=== PATIENT | female | born 1955 | race Caucasian/White ===

== ENCOUNTER 2022-04-07 21:25 | Inpatient (IN) | payer MEDICARE ==
[~2022-04-07] VITALS: Ht 160 cm; Wt 105.7 kg
[2022-04-07 21:30] VITALS: BP 99/47
[2022-04-07 21:47] LABS: HEMATOCRIT 34.5 % (37.0-47.0); MEAN CELL VOLUME 84.8 fl (81.0-99.0); MEAN CORPUSCULAR HGB CONC 30.7 g/dl (33.0-37.0); MEAN PLATELET VOLUME 11.6 fl (9.6-12.3); PLATELET COUNT AUTOMATED 148 10*3/uL (130-400); RED BLOOD COUNT 4.07 10*6/uL (4.10-5.10); RED CELL DISTRI WIDTH 16.4 % (0-14.5); WHITE BLOOD COUNT 22.2 10*3/uL (4.8-10.8)
[2022-04-07 21:50] LABS: MANUAL DIFF REFLEX YES
[2022-04-07 22:01] LABS: POTASSIUM 3.5 mmol/L (3.4-5.1)
[2022-04-07 22:07] LABS: PLATELET SUFFICIENCY NORMAL (NORMAL); TOTAL CELLS COUNTED 100 #CELLS
[2022-04-07 22:27] VITALS: BP 125/70
[2022-04-07 23:13] VITALS: BP 120/52
[2022-04-07 23:29] LABS: BILIRUBIN Negative (Negative); BLOOD Negative (Negative); CLARITY Cloudy (Clear); COLOR Yellow (Yellow); GLUCOSE Negative (Negative); KETONE Trace (Negative); LEUKO ESTERASE 2+ (Negative); NITRITE Negative (Negative); SPECIFIC GRAVITY 1.015 (1.001-1.030)
[2022-04-07 23:51] LABS: EPITHELIAL CELLS TNTC
[2022-04-07 23:52] LABS: BACTERIA 2+; WBC 16-20 wbc/hpf (0-5)
[2022-04-08] VITALS (12 sets, daily range): BP systolic 100–141; BP diastolic 47–87
[2022-04-08 06:25] LABS: HEMATOCRIT 32.9 % (37.0-47.0); MEAN CELL VOLUME 86.4 fl (81.0-99.0); MEAN CORPUSCULAR HGB 26.5 pg (27.0-31.0); MEAN CORPUSCULAR HGB CONC 30.7 g/dl (33.0-37.0); MEAN PLATELET VOLUME 12.9 fl (9.6-12.3); PLATELET COUNT AUTOMATED 129 10*3/uL (130-400); RED BLOOD COUNT 3.81 10*6/uL (4.10-5.10); RED CELL DISTRI WIDTH 16.5 % (0-14.5); WHITE BLOOD COUNT 17.9 10*3/uL (4.8-10.8)
[2022-04-08 06:31] LABS: MANUAL DIFF REFLEX YES
[2022-04-08 07:24] LABS: BASOPHILS 1 % (0-1); PLATELET SUFFICIENCY LOW (NORMAL); TOTAL CELLS COUNTED 100 #CELLS
[2022-04-08 07:33] LABS: POTASSIUM 3.4 mmol/L (3.4-5.1); TOTAL PROTEIN 5.5 gm/dL (6.0-8.0)
[2022-04-08 08:07] LABS: VITAMIN D, 25-HYDROXY 27.3 ng/mL (30-100)
[2022-04-08] MEDS ORDERED: KAPSPARGO SPRI100 MG PO (17:13)
[2022-04-08] MEDS ORDERED: ALLOPURINOL300 MG PO (17:14)
[2022-04-08] MEDS ORDERED: SOAANZ60 M1 PO (17:14)
[2022-04-08] MEDS ORDERED: VAZALORE81 MG PO (17:15)
[2022-04-08] MEDS ORDERED: TRELEGY ELLIPT1 EACH INH (17:22)
[2022-04-09] VITALS: BP 142/82
[2022-04-09 07:58] LABS: MEAN CELL VOLUME 87.2 fl (81.0-99.0); MEAN CORPUSCULAR HGB 26.4 pg (27.0-31.0); MEAN CORPUSCULAR HGB CONC 30.3 g/dl (33.0-37.0); MEAN PLATELET VOLUME 12.3 fl (9.6-12.3); PLATELET COUNT AUTOMATED 97 10*3/uL (130-400); RED BLOOD COUNT 3.67 10*6/uL (4.10-5.10); RED CELL DISTRI WIDTH 16.7 % (0-14.5); WHITE BLOOD COUNT 9.2 10*3/uL (4.8-10.8)
[2022-04-09 08:00] VITALS: BP 119/57
[2022-04-09 08:01] LABS: MANUAL DIFF REFLEX YES
[2022-04-09 08:32] LABS: POTASSIUM 3.8 mmol/L (3.4-5.1)
[2022-04-09 08:36] LABS: ATYPICAL LYMPHS 1 % (0-0); POLYCHROMASIA SLIGHT; TOTAL CELLS COUNTED 100 #CELLS
[2022-04-09 08:37] LABS: OVALOCYTES FEW; PLATELET SUFFICIENCY LOW (NORMAL); ROULEAUX SLIGHT; TARGET CELLS FEW
[2022-04-09 12:00] VITALS: BP 123/68
[2022-04-09 14:09] LABS: ACID FAST SPEC PROCESSING Direct Inoculation (.)
[2022-04-09 16:00] VITALS: BP 132/68
[2022-04-09 20:00] VITALS: BP 131/81
[2022-04-10] VITALS (8 sets, daily range): BP systolic 135–155; BP diastolic 72–95
[2022-04-10 02:12] LABS: HEMATOCRIT 30.7 % (37.0-47.0); MEAN CELL VOLUME 85.8 fl (81.0-99.0); MEAN CORPUSCULAR HGB 26.8 pg (27.0-31.0); MEAN CORPUSCULAR HGB CONC 31.3 g/dl (33.0-37.0); PLATELET COUNT AUTOMATED 75 10*3/uL (130-400); RED BLOOD COUNT 3.58 10*6/uL (4.10-5.10); RED CELL DISTRI WIDTH 16.9 % (0-14.5); WHITE BLOOD COUNT 7.1 10*3/uL (4.8-10.8)
[2022-04-10 02:16] LABS: MANUAL DIFF REFLEX YES
[2022-04-10 02:23] LABS: POTASSIUM 3.4 mmol/L (3.4-5.1)
[2022-04-10 02:25] LABS: INTERNATIONAL NORM RATIO 0.9 (2.0-3.5)
[2022-04-10 02:34] LABS: BURR CELLS FEW; POLYCHROMASIA SLIGHT; TOTAL CELLS COUNTED 100 #CELLS
[2022-04-10 02:36] LABS: PLATELET SUFFICIENCY LOW (NORMAL); TOXIC GRANULATION SLIGHT
[2022-04-10] MEDS ORDERED: WARFARIN SOD5 MG PO (03:02)
[2022-04-11] VITALS: BP 150/70
[2022-04-11 06:13] LABS: BASO % 0.3 % (0.0-1.0); HEMATOCRIT 28.1 % (37.0-47.0); LYMPH # 0.9 10*3/uL (1.3-4.4); LYMPH % 11.9 % (27.0-41.0); MEAN CELL VOLUME 83.1 fl (81.0-99.0); MEAN CORPUSCULAR HGB 26.3 pg (27.0-31.0); MEAN CORPUSCULAR HGB CONC 31.7 g/dl (33.0-37.0); MONO # 0.2 10*3/uL (0.1-1.0); MONO % 2.6 % (3.0-9.0); NEUT # 6.6 10*3/uL (2.3-7.9); NEUT % 84.6 % (47.0-73.0); PLATELET COUNT AUTOMATED 86 10*3/uL (130-400); RED BLOOD COUNT 3.38 10*6/uL (4.10-5.10); RED CELL DISTRI WIDTH 16.8 % (0-14.5); WHITE BLOOD COUNT 7.8 10*3/uL (4.8-10.8)
[2022-04-11 06:27] LABS: ACT PARTIAL THROMBO TIME 48.7 SECONDS (20.0-32.1)
[2022-04-11 08:00] VITALS: BP 128/63
[2022-04-11 12:00] VITALS: BP 137/50
[2022-04-11] MEDS ORDERED: AZITHROMYCIN500 M2 PO (13:49)
[2022-04-11 16:00] VITALS: BP 126/79
[2022-04-11 20:00] VITALS: BP 133/65
[2022-04-12] VITALS: BP 168/69
[2022-04-12 06:09] LABS: BASO % 0.1 % (0.0-1.0); HEMATOCRIT 28.6 % (37.0-47.0); LYMPH # 0.8 10*3/uL (1.3-4.4); LYMPH % 10.3 % (27.0-41.0); MEAN CELL VOLUME 83.9 fl (81.0-99.0); MEAN CORPUSCULAR HGB 26.1 pg (27.0-31.0); MEAN CORPUSCULAR HGB CONC 31.1 g/dl (33.0-37.0); MONO # 0.1 10*3/uL (0.1-1.0); MONO % 1.7 % (3.0-9.0); NEUT % 87.3 % (47.0-73.0); PLATELET COUNT AUTOMATED 90 10*3/uL (130-400); RED BLOOD COUNT 3.41 10*6/uL (4.10-5.10); RED CELL DISTRI WIDTH 16.9 % (0-14.5)
[2022-04-12 06:24] LABS: POTASSIUM 3.2 mmol/L (3.4-5.1); TOTAL PROTEIN 5.7 gm/dL (6.0-8.0)
[2022-04-12 06:29] LABS: ACT PARTIAL THROMBO TIME 25.4 SECONDS (20.0-32.1); INTERNATIONAL NORM RATIO 1.2 (2.0-3.5)
[2022-04-12 08:00] VITALS: BP 148/73
[2022-04-12 12:00] VITALS: BP 140/55
[2022-04-12] MEDS ORDERED: KIMYRSA1200 MG IV (14:26)
[2022-04-12] MEDS ORDERED: METOPROLOL SUCC50 M1 PO (14:28)
[2022-04-12] MEDS ORDERED: VITAMIN D3125 MC1 PO (14:28)
[2022-04-12] MEDS ORDERED: WARFARIN SOD5 MG PO (14:29)
[2022-04-12] MEDS ORDERED: PREDNISONE10 MG PO (14:29)
[2022-04-12] MEDS ORDERED: K-TAB20 MEQ PO (14:35)
[2022-04-12 16:00] VITALS: BP 146/60
== END 2022-04-12 16:44 | disposition home or self-care (01) | DRG 314 ==
LOC: ED 21:25 → 4E 04-08 00:46 → EDHOLD 04-08 00:46 → 4E 04-08 01:54
PROVIDERS: Internal Medicine; Surgery; ADMIT Family Medicine; ATTEND Family Medicine
PROC: 0JPT3XZ Removal of Tunneled Vascular Access Device from Trunk Subcutaneous Tissue and Fascia, Percutaneous Approach (ICD-10-PCS; 2022-04-08)
PROC: 02PYX3Z Removal of Infusion Device from Great Vessel, External Approach (ICD-10-PCS; 2022-04-08)
PROC: BD15YZZ Fluoroscopy of Upper GI using Other Contrast (ICD-10-PCS; principal; 2022-04-12)
DX: T80.211A Bloodstream infection due to central venous catheter, initial encounter (principal); A41.01 Sepsis due to Methicillin susceptible Staphylococcus aureus; J96.00 Acute respiratory failure, unspecified whether with hypoxia or hypercapnia; N30.00 Acute cystitis without hematuria; E44.0 Moderate protein-calorie malnutrition; I13.0 Hypertensive heart and chronic kidney disease with heart failure and stage 1 through stage 4 chronic kidney disease, or unspecified chronic kidney disease; N18.4 Chronic kidney disease, stage 4 (severe); I48.19 Other persistent atrial fibrillation; Z68.41 Body mass index [BMI] 40.0-44.9, adult; I50.32 Chronic diastolic (congestive) heart failure; K27.9 Peptic ulcer, site unspecified, unspecified as acute or chronic, without hemorrhage or perforation; I49.5 Sick sinus syndrome; E83.42 Hypomagnesemia; D64.9 Anemia, unspecified; I25.10 Atherosclerotic heart disease of native coronary artery without angina pectoris; R73.9 Hyperglycemia, unspecified; E78.2 Mixed hyperlipidemia; J45.20 Mild intermittent asthma, uncomplicated; D69.6 Thrombocytopenia, unspecified; E66.01 Morbid (severe) obesity due to excess calories; G47.33 Obstructive sleep apnea (adult) (pediatric); Z88.6 Allergy status to analgesic agent; Z95.1 Presence of aortocoronary bypass graft; Z98.891 History of uterine scar from previous surgery

== ENCOUNTER → 2022-04-18 | Outpatient (CLI) | payer MEDICARE ==
[~2022-04-18] MED LIST: ALLOPURINOL300 MG PO; AZITHROMYCIN500 M2 PO; K-TAB20 MEQ PO; KAPSPARGO SPRI100 MG PO; KIMYRSA1200 MG IV; METOPROLOL SUCC50 M1 PO; PREDNISONE10 MG PO; SOAANZ60 M1 PO; TRELEGY ELLIPT1 EACH INH; VAZALORE81 MG PO; VITAMIN D3125 MC1 PO; WARFARIN SOD5 MG PO
[2022-04-18 10:11] LABS: BASO % 0.1 % (0.0-1.0); EOS % 0.1 % (1.0-4.0); HEMATOCRIT 36.7 % (37.0-47.0); LYMPH # 1.1 10*3/uL (1.3-4.4); LYMPH % 6.9 % (27.0-41.0); MEAN CELL VOLUME 85.7 fl (81.0-99.0); MEAN CORPUSCULAR HGB 25.7 pg (27.0-31.0); MEAN PLATELET VOLUME 12.4 fl (9.6-12.3); MONO # 0.8 10*3/uL (0.1-1.0); MONO % 4.8 % (3.0-9.0); NEUT # 14.5 10*3/uL (2.3-7.9); NEUT % 87.4 % (47.0-73.0); PLATELET COUNT AUTOMATED 281 10*3/uL (130-400); RED BLOOD COUNT 4.28 10*6/uL (4.10-5.10); RED CELL DISTRI WIDTH 17.3 % (0-14.5); WHITE BLOOD COUNT 16.6 10*3/uL (4.8-10.8)
[2022-04-18 10:35] LABS: POTASSIUM 4.1 mmol/L (3.4-5.1); TOTAL PROTEIN 6.8 gm/dL (6.0-8.0)
[2022-04-18 11:40] LABS: INTERNATIONAL NORM RATIO 5.8 (2.0-3.5)
== END | disposition home or self-care (01) ==
LOC: LAB 09:18
PROVIDERS: ATTEND Internal Medicine
DX: I13.0 Hypertensive heart and chronic kidney disease with heart failure and stage 1 through stage 4 chronic kidney disease, or unspecified chronic kidney disease (principal); I50.30 Unspecified diastolic (congestive) heart failure; N18.4 Chronic kidney disease, stage 4 (severe); J45.40 Moderate persistent asthma, uncomplicated

== ENCOUNTER → 2022-04-22 | Outpatient (CLI) | payer MEDICARE | END | disposition home or self-care (01) | LOC: RESCLI 08:41 → TELEHEALTH 08:41 | PROVIDERS: ATTEND Internal Medicine Infectious Disease | DX: T85.79XA Infection and inflammatory reaction due to other internal prosthetic devices, implants and grafts, initial encounter (principal); N39.0 Urinary tract infection, site not specified; I25.10 Atherosclerotic heart disease of native coronary artery without angina pectoris; K27.9 Peptic ulcer, site unspecified, unspecified as acute or chronic, without hemorrhage or perforation; I13.10 Hypertensive heart and chronic kidney disease without heart failure, with stage 1 through stage 4 chronic kidney disease, or unspecified chronic kidney disease; N18.9 Chronic kidney disease, unspecified; Z88.5 Allergy status to narcotic agent; Z79.899 Other long term (current) drug therapy; Y84.9 Medical procedure, unspecified as the cause of abnormal reaction of the patient, or of later complication, without mention of misadventure at the time of the procedure ==